=== PATIENT | male | born 1970 | race Caucasian/White ===

== ENCOUNTER 2019-04-18 14:12 | Inpatient (IN) | payer OTHER ==
[~2019-04-18] VITALS: Ht 185.4 cm; Wt 101.6 kg
--- NOTE | ~2019-04-18 | EMS ---
[place] [address] EMS Patient Care Report Name: DYLAN ORTIZ Room #: PRE M.R.#: [id number] Admission: Attend Phys: Discharge: Date of : 72 Report #: [id number] THIS REPORT FOR: //name// Report Transmitted: 04/18/2019 14:00 EMS Care Summary [place], [place]/[facility] Incident [id number] @ 04/18/2019 13:24 Incident Location [address] [place] [address] Patient DYLAN ORTIZ Male, 48 Years 1970 Patient Address [address] [place] [address] Patient History None Reported, Patient Allergies No known allergies, Patient Medications None Reported, Chief Complaint Edema Disposition Transported No Lights/[place] Dispatch Reason Sick Person Transported To [facility] Narrative Dispatched for a sick. Unable to gain access initially, P36 was required to force entry. Upon arrival found pt sitting at the top of the stairs. PT stated that he had been having some issues with swelling in his legs and abdomen for the past 2 months with no relief. 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 PT denied any allergies or medications. Pt stated he was also having some weakness in his legs and feeling tired most of the time that he was unable to get around for more than a few minutes at a time before he needed to take a break. Pt vitals assessed. PT found to have some hypertension as well. Pt was moved to the stretcher. 4 lead and 12 lead performed. While en route to hospital, pt and vitals reassessed. Pt remained unchanged throughout transport. Upon arrival at hospital, pt taken into ER. PT care report given to RN. PT care transferred to RN. Initial Vitals @13:52P: 183,CO: 2,SpO2: 96, @13:56P: 110,CO: 1,SpO2: 77, @13:57P: 114,SpO2: 98,MN Suspected: false @13:51P: 115,R: 18,BP: 194/147,Pain: 0/10,GCS: 15,Glucose: 68,CO: 0,SpO2: 97,Revised Trauma: 12, @13:57P: 110,R: 16,BP: 196/141,Pain: 0/10,GCS: 15,SpO2: 98,Revised Trauma: 12, Assessments @13:50MENTAL:Person Oriented,Event Oriented,Place Oriented,Time Oriented,SKIN:HEENT:Head/Face: No Abnormalities,Neck/Airway: No Abnormalities,LUNG SOUNDS:Left Upper: Distension,Left Lower: Distension,Right Lower: Distension,Right Upper: Distension,ABDOMEN:Left Upper: Distension,Left Lower: Distension,Right Lower: Distension,Right Upper: Distension,PELVIS//GI:No Abnormalities,EXTREMITIES:Right Arm: Edema,Left Leg: Edema,Left Arm: Edema,Right Leg: Edema,Capillary Refill: Right Upper: < 2 Sec,PULSE:Radial: 2+ Normal,NEURO:No Abnormalities,@14:15MENTAL:Person Oriented,Time Oriented,Event Oriented,Place Oriented,SKIN:HEENT:Head/Face: No Abnormalities,Neck/Airway: No Abnormalities,LUNG SOUNDS:Left Upper: Distension,Right Upper: Distension,Right Lower: Distension,Left Lower: Distension,ABDOMEN:Left Upper: Distension,Right Upper: Distension,Right Lower: Distension,Left Lower: Distension,PELVIS//GI:No Abnormalities,EXTREMITIES:Left Leg: Edema,Capillary Refill: Right Upper: < 2 Sec,Right Arm: Edema,Left Arm: Edema,Right Leg: Edema,PULSE:Radial: 2+ Normal,NEURO:No Abnormalities, Impression Generalized edema Procedures @13:5712-Lead ECG@13:50ALS AssessmentResponse: UnchangedSucceeded Timeline 13:23,Call Received 13:23,Dispatch Notified 13:24,Dispatched 13:26,En Route [address] [address] EMS Patient Care Report Name: DYLAN ORTIZ Room #: PRE ER M.R.#: [id number] Admission: Attend Phys: Discharge: Date of : 72 Report #: [id number] 13:34,On Scene 13:50,At Patient 13:50,ALS Assessment,Response: UnchangedSucceeded, 13:51,BP: 194/147 M,PULSE: 115,RR: 18 R,SPO2: 97 Ox,ETCO2: ,B,PAIN: 0,GCS: 15, 13:52,BP: / M,PULSE: 183,RR: R,SPO2: 96 Ox,ETCO2: ,BG: ,PAIN: ,GCS: , 13:56,Depart Scene 13:56,BP: / M,PULSE: 110,RR: R,SPO2: 77 Ox,ETCO2: ,BG: ,PAIN: ,GCS: , 13:57,BP: 196/141 M,PULSE: 110,RR: 16 R,SPO2: 98 Ox,ETCO2: ,BG: ,PAIN: 0,GCS: 15, 13:57,12-Lead ECG, 13:57,BP: / M,PULSE: 114,RR: R,SPO2: 98 Ox,ETCO2: ,BG: ,PAIN: ,GCS: , 14:15,At Destination 14:25,Call Closed Disclaimer v1.1 Copyright 2019 [employer] This EMS Care Summary contains data elements from the applicable legal record (which may be displayed differently). It is designed to provide pertinent information for the following purposes: continuity of care, clinical quality, and state data reporting. The complete legal record is available to ED staff and administrators of the receiving hospital in [employer]'s Patient Tracker. All data is provided "as is."
--- NOTE | 2019-04-18 14:30 | NUR ---
RADIOLOGY HERE TO TAKE EXAM
[2019-04-18 14:40] LABS: ABSOLUTE NEUTROPHILS 11.2 thou/uL (1.4-8.2); BASOPHILS 0.6 % (0.0-2.0); EOSINOPHILS 0.2 % (0.0-3.0); HEMATOCRIT 44.4 % (42.0-52.0); HEMOGLOBIN 14.4 gm/dL (14.0-18.0); LYMPHOCYTES 8.5 % (24.0-44.0); MCH 23.7 pg (26.0-34.0); MCHC 32.4 g/dL (28.0-37.0); MCV 73.1 fL (80.0-100.0); MONOCYTES 8.4 % (1.0-8.0); POLYS 82.3 % (36.0-66.0); RBC 6.07 mil/uL (4.50-6.00); RDW 22.9 % (10.5-14.5); WBC 13.7 thou/uL (4.0-11.0)
[2019-04-18 14:53] LABS: CALCIUM 9.6 mg/dL (8.5-10.1); CREATININE 2.2 mg/dL (0.7-1.3); POTASSIUM 3.7 mmol/L (3.5-5.1)
[2019-04-18 14:56] LABS: APTT 26.9 Seconds (24.5-32.8); D-DIMER 3.84 ug/mLFEU (0.19-0.50); INR 1.3; PROTIME 13.3 Seconds (9.3-11.4)
[2019-04-18 15:05] LABS: ALBUMIN 2.9 g/dL (3.4-5.0); TOTAL BILIRUBIN 5.6 mg/dL (<0.1-1.0); TROPONIN-I 0.21 ng/mL (<0.06)
[2019-04-18 15:13] LABS: ANISOCYTOSIS 2+; MICROCYTES 1+; PLATELET COUNT 150 thou/uL (150-400); PLATELET ESTIMATE NORMAL
[2019-04-18 15:17] LABS: MAGNESIUM 1.8 mg/dL (1.8-2.4)
[2019-04-18 17:55] LABS: FOLIC ACID 4.4 ng/mL (8.6-58.9)
[2019-04-18 18:05] LABS: URINE BILIRUBIN NEGATIVE (Negative); URINE BLOOD TRACE (Negative); URINE CLARITY CLEAR; URINE COLOR YELLOW; URINE GLUCOSE-RANDOM* NEGATIVE (Negative); URINE KETONES NEGATIVE (Negative); URINE LEUKOCYTES-REFLEX NEGATIVE (Negative); URINE NITRITE-REFLEX NEGATIVE (Negative); URINE PROTEIN (DIPSTICK) NEGATIVE (Negative); URINE UROBILINOGEN 0.2 E.U./dl (0.2-1.0)
[2019-04-18 18:13] LABS: AMP/METHAMP Negative (Negative); BARBITURATES Negative (Negative); BENZODIAZEPINES Negative (Negative); COCAINE Negative (Negative); METHADONE Negative (Negative); OPIATES Negative (Negative); PCP Negative (Negative)
[2019-04-18 20:38] VITALS: BP 181/128
--- NOTE | 2019-04-19 | NUR ---
PT ADMITTED FROM ED WITH ONSET HEART FAILURE,CKD.PT ARRIVED VIA CART ACCOMPANIED BT ED STAFF.PT A/OX4 VSS,HYPERTENSIVE UPON ARRIVAL.DENIES CHEST PAIN.ORIENTED TO RM AND UNIT ACTIVITIES.PT ASSESSMENT COMPLETED DOCUMENTED.ON MONITOR SINUS TACHY.PITTING EDEMA NOTED TO ALL EXTREMITIES,ABDOMEN AND SCTROTUM.SOME WEEPING NOTED TO LEFT LES.PULSES PRESENT,SENSATION INTACT.PT STATED HE HAS NOT BEEN ABLE TO DO MUCH ACTIVITIES AT HOME D/T BEING SHORT OF BREATH AND FATIQUE AND IT HAS BEEN GOING ON FOR SOME MONTHS.HE DOES NOT TAKE ANY MEDICATIONS AT HOME.DENIES PAIN.CONSULTED CARDIOLOGY AND NEPHROLOGY.WILL CALL GI CONSULT THIS AM D/T ASCITIS AND ELEVATED LFTS.POC IS TO CONTINUES TO MONITOR AND DIURESE.US OF ABD THIS AM.WILL CONT TO MONITOR PER POC.
[2019-04-19 00:12] VITALS: BP 160/111
[2019-04-19 05:10] LABS: GLYCOHEMOGLOBIN (HGB A1C) 5.8 % (4.8-5.6)
[2019-04-19 05:19] VITALS: BP 166/123
[2019-04-19 05:58] LABS: HEMATOCRIT 40.6 % (42.0-52.0); HEMOGLOBIN 13.1 gm/dL (14.0-18.0); MCH 23.8 pg (26.0-34.0); MCHC 32.4 g/dL (28.0-37.0); MCV 73.5 fL (80.0-100.0); PLATELET COUNT 130 thou/uL (150-400); RBC 5.52 mil/uL (4.50-6.00); RDW 23.4 % (10.5-14.5); WBC 10.1 thou/uL (4.0-11.0)
[2019-04-19 06:03] LABS: % SATURATION 8 % (20-39); IRON 16 ug/dL (65-175); TIBC 206 ug/dL (250-450)
[2019-04-19 06:07] LABS: ANION GAP 14 mmol/L (7-16); BUN 37 mg/dL (7-18); CALCIUM 9.1 mg/dL (8.5-10.1); CHLORIDE 101 mmol/L (98-107); CHOLESTEROL 117 mg/dL (<200); CO2 24 mmol/L (21-32); GLUCOSE 87 mg/dL (74-106); HDL CHOLESTEROL 13 mg/dL (>40); LDL CHOLESTEROL 87 mg/dL (<100); MAGNESIUM 1.7 mg/dL (1.8-2.4); POTASSIUM 3.1 mmol/L (3.5-5.1); SODIUM 139 mmol/L (136-145); TRIGLYCERIDE 88 mg/dL (<150); TROPONIN-I 0.06 ng/mL (<0.06); VLDL 18 mg/dL (<40)
[2019-04-19 06:08] LABS: SERUM ASSESSMENT Slight Lipemia
[2019-04-19 07:13] VITALS: BP 160/110
[2019-04-19 08:56] LABS: ABSOLUTE NEUTROPHILS 8.8 thou/uL (1.4-8.2); PLATELET ESTIMATE NORMAL
[2019-04-19 08:57] LABS: ANISOCYTOSIS 2+; MICROCYTES 2+
[2019-04-19 09:42] LABS: CLARITY CLOUDY; COLOR YELLOW; SOURCE ABDOMINAL; TOTAL VOLUME 60 mL
[2019-04-19 10:00] LABS: BF NUCLEATED CELLS 392; BF RBC 1319
[2019-04-19 10:47] LABS: BF NEUTROPHILS 45
[2019-04-19 10:48] LABS: BF MACROPHAGE 26
[2019-04-19 11:32] LABS: SOURCE ABDOMINAL
[2019-04-19 12:50] LABS: PROT/CREAT RATIO 0.8; URINE CREATININE-RANDOM* 23.4 mg/dL; URINE PROTEIN-RANDOM* 19.3 mg/dL (<11.9)
--- NOTE | 2019-04-19 12:52 | 2DMMODE ---
[facility] [address] [place] [address] 2 D/M-MODE ECHOCARDIOGRAM Name: DYLAN ORTIZ Room #: 210-P ADM IN M.R.#: [id number] Admission: 04/18/19 Attend Phys: Costa Tang MD Discharge: Date of : 72 Date of Service: 04/19/19 1252 Report #: [id number] THIS REPORT FOR: //name// APPROVED REPORT Study performed: 04/19/2019 11:17:57 EXAM: Comprehensive 2D, Doppler, and color-flow Echocardiogram Patient Location: Bedside Room #: 210 Status: routine BSA: 2.36 HR: 110 bpm BP: 160/110 mmHg Rhythm: Tachycardia Other Information Study Quality: Adequate Technically limited study due to inability to position patient. Indications elevated BNP, SOA/weakness, LE edema 2D Dimensions RVDd: 41.70 mm IVSd: 14.17 (7-11mm) LVOT Diam: 25.01 (18-24mm) LVDd: 50.19 mm PWd: 14.91 (7-11mm) Ascending Ao: 34.53 (22-36mm) LVDs: 44.09 (25-40mm) Aortic Root: 31.50 mm IVC: 19.00 mm Volumes Left Atrial Volume (Systole) Single Plane 4CH: 46.56 mL Single Plane 2CH: 73.56 mL LA ESV Index: 27.00 mL/m2 Aortic Valve AoV Peak Ken.: 1.09 m/s AO Peak Gr.: 4.79 mmHg LVOT Max P.02 mmHg LVOT Max V: 0.71 m/s HUNG Vmax: 3.19 cm2 Mitral Valve MV Decel. Time: 197.45 ms [facility] [address] [place] [address] 2 D/M-MODE ECHOCARDIOGRAM Name: DYLAN ORTIZ Room #: 210-[facility] IN .R.#: [id number] Admission: 04/18/19 Attend Phys: Costa Tang MD Discharge: Date of : 72 Date of Service: 04/19/19 1252 Report #: [id number] MV E Max Ken.: 0.85 m/s IVRT: 117.65 ms Pulmonary Valve PV Peak Ken.: 0.66 m/s PV Peak Gr.: 1.79 mmHg Tricuspid Valve TR Peak Ken.: 3.00 m/s RAP Estimate: 10.00 mmHg TR Peak Gr.: 36.05 mmHg PA Pressure: 46.00 mmHg Left Ventricle The left ventricle is normal size. Mild to moderate concentric left ventricular hypertrophy. Left ventricular ejection fraction is severely decreased. Left ventricular thrombus is present in apex. LVEF is 25-30%. This study is not technically sufficient to allow evaluation of the LV diastolic function. Right Ventricle Right ventricle is mildly dilated. Atria The left atrium size is normal. Right atrium is moderately dilated. Aortic Valve The aortic valve is normal in structure. No aortic regurgitation is present. There is no aortic valvular stenosis. Mitral Valve The mitral valve is normal in structure. Trace to mild mitral regurgitation. No evidence of mitral valve stenosis. Tricuspid Valve The tricuspid valve is normal in structure. Trace tricuspid regurgitation. PAP is estimated at 46 mmHg. Pulmonic Valve The pulmonary valve is normal in structure. There is no pulmonic valvular regurgitation. Great Vessels The aortic root is normal in size. IVC is normal in size and collapses <50% with inspiration. Pericardium [facility] [address] [place] [address] 2 D/M-MODE ECHOCARDIOGRAM Name: DYLAN ORTIZ Room #: 210-P ADM IN .R.#: [id number] Admission: 04/18/19 Attend Phys: Costa Tang MD Discharge: Date of : 72 Date of Service: 04/19/19 1252 Report #: [id number] Trace pericardial effusion. Moderate pleural effusion. <Conclusion> The left ventricle is normal size. Mild to moderate concentric left ventricular hypertrophy. Left ventricular ejection fraction is severely decreased. Left ventricular thrombus is present in apex. Right ventricle is mildly dilated. Right atrium is moderately dilated. The aortic valve is normal in structure. Trace to mild mitral regurgitation. Trace tricuspid regurgitation. PAP is estimated at 46 mmHg. Moderate pleural effusion. <ELECTRONICALLY SIGNED> By: Alex Raymond MD 04/19/19 1252 1252 1252 Alex Raymond MD /INF
[2019-04-19 13:57] LABS: INR 1.3; PROTIME 13.9 Seconds (9.3-11.4)
[2019-04-19 15:55] VITALS: BP 150/111
--- NOTE | 2019-04-19 17:45 | NUR ---
ASSUMED CARE OF PT AT SHIFT CHANGE. ASSESSMENTS CHARTED. MEDS GIVEN PER OCT. PT ALERT AND ORIENTED. VSS- BP ELEVATED, PROVIDERS AWARE. PT HAD PARACENTESIS THIS SHIFT WITH 5L REMOVED, DRESSING LEAKING THIS AM, DRESSING REMOVED, PRESSURE DRESSING REAPPLIED. ECHO THIS SHIFT- SEE RESULTS. HEPARIN GTT STARTED PER PHYS ORDERS. HEP DRIP CONTINUES. O2 SATS WNL ON ROOM AIR. DENIES NEEDS AT THIS TIME. WILL CONT TO MONITOR AND FOLLOW POC.
--- NOTE | 2019-04-19 17:59 | NUR ---
Chart reveiwed and case discussed with the care team. Pt noted to be pt pay. [employer] referral initiated for both SS disablity info and medicaid application. Pt with advanced liver disease. He lives with family and is unemployed. He has not seen a doctor for many years. Workup in progress with multiple specialist consults. Will f/u with the pt to assess for dc planning needs. PT/OT evals requested. Pt will likely need saftey net referral and med assistance.
[2019-04-19 18:06] LABS: ALPHA FETOPROTEIN-TUMOR* 2.4 ng/mL (0.0-8.3)
--- NOTE | 2019-04-19 18:56 | HC ---
[facility] [place] [address] CONSULTATION Name: DYLAN ORTIZ Room #: 210-P ADM IN M.R.#: [id number] Admission: 04/18/19 Attend Phys: Costa Tang MD Discharge: Date of : 72 Report #: [id number] THIS REPORT FOR: //name// CC: Costa Tang [facility] physician/PCP DATE OF SERVICE: 04/19/2019 CONSULTING PHYSICIAN: Dr. Tang. REASON FOR CONSULTATION: Hypothyroidism. HISTORY OF PRESENT ILLNESS: This is a 48-year-old male patient whose medical background is rather unremarkable, who presented to us with complaints of progressive weakness, tiredness, fatigue, shortness of breath and leg edema over the past few weeks that have gotten intensely worse over the past 2 days. On arrival, the patient was found to have multiple medical concerns including renal insufficiency, congestive heart failure, hypertensive urgency as well as elevated D-dimer. In the context of his initial evaluation, the patient was also found to have a slightly elevated TSH. On further questioning, the patient indicated that he does not have any knowledge of prior personal or family history of thyroid disease. He has not appreciated neck fullness, neck pain, difficulty swallowing or breathing or voice changes. REVIEW OF SYSTEMS: CONSTITUTIONAL: Fatigue, tiredness, but no fever or chills. PULMONARY: Shortness of breath, cough, but no hemoptysis. HEENT: Negative for congestion, earache, ear discharge. CARDIAC: Shortness of breath, dyspnea on exertion, edema, ascites. GI: Abdominal distention. No nausea, vomiting, or change in bowel movement frequency. NEUROLOGY: Lightheadedness, but no loss of consciousness, no seizure activity. SKIN: No rash or itching, ulceration. PSYCHIATRIC: No delusion, hallucination. ENDOCRINE: No polydipsia or polyuria. Otherwise his review of systems was noncontributory other than what is mentioned in HPI. PAST MEDICAL HISTORY: Unremarkable. ACTIVE MEDICATIONS: None. ALLERGIES: No known drug allergies. [facility] [address] [place] [address] CONSULTATION Name: DYLAN ORTIZ Room #: 210-[facility] IN M.R.#: [id number] Admission: 04/18/19 Attend Phys: Costa Tang MD Discharge: Date of : 72 Report #: [id number] FAMILY HISTORY: Noncontributory. SOCIAL HISTORY: The patient denies use of tobacco, alcohol or illicit drugs. He is single, lives alone and is currently unemployed. PHYSICAL EXAMINATION: GENERAL: Pleasant male patient who is not in apparent pain or distress. VITAL SIGNS: Blood pressure is 188/132 mmHg, heart rate is 101 beats per minute, respirations 20 per minute, temperature 36.3 degrees Celsius. HEENT: Anicteric sclerae. Intact extraocular motions. No carotid bruits or JVD. NECK: Supple, without JVD, carotid bruits or lymphadenopathy. I do not appreciate thyromegaly. CHEST: Noted for moderate breath sounds, bibasilar crackles, scattered rales, but no wheezes. HEART: Regular rate and rhythm without murmurs or gallops. ABDOMEN: Distended, but soft, nontender, no guarding. Active bowel sounds. EXTREMITIES: Lower extremity exam, ankle edema is noted bilaterally +1, palpable pedal pulses. NEUROLOGIC: Awake, alert and oriented to time, place and person. The remainder of examination is nonfocal. PSYCHIATRIC: He has normal mood and affect, interactive, appropriate, pleasant. SKIN: No rash, ulceration, or other abnormalities. LABORATORY DATA: Sodium 139, potassium 3.1, chloride 101, CO2 of 24, anion gap of 14, BUN 37, creatinine 2.0, glucose 87, AST 27, total bilirubin 5.6, calcium 9.1, magnesium 1.7, alkaline phosphatase 155, ALT 18, total protein 7.0, albumin 2.9, GFR 36. Ammonia less than 10. Total CPK 82, troponin 0.06. Total cholesterol 117, triglycerides 88, HDL 13, LDL 87. Hemoglobin 13.1, hematocrit 40.6, white blood count 10.1. TSH is 8.70. Ferritin 379, folate 4.4, hemoglobin A1c 5.8%. ASSESSMENT AND PLAN: Hypothyroidism. The patient certainly has an abnormal TSH that falls within the area of subclinical hypothyroidism. He is asymptomatic for this issue, which further supports the notion of subclinical hypothyroidism. The patient was counseled about this finding and about its implications. I will move to further work this up with a free T4 level, thyroid peroxidase antibodies and neck ultrasound to determine whether active thyroid hormone replacement therapy is needed or not. Glucose intolerance/prediabetes. The patient's hemoglobin A1c is consistent with early prediabetes. This could be falsely lowered by progressive issues of renal insufficiency. That said, I will order for blood glucose monitoring at least twice a day to further evaluate his glycemic standing. [facility] [address] [facility] [address] CONSULTATION Name: DYLAN ORTIZ Room #: 210-P ADM IN M.R.#: [id number] Admission: 04/18/19 Attend Phys: Costa Tang MD Discharge: Date of : 72 Report #: [id number] I certainly appreciate this consultation by Dr. Tang. <ELECTRONICALLY SIGNED> By: Prema Gonzalez MD 04/19/19 1856 1159 1420 Prema Gonzalez MD /nt
[2019-04-19 20:02] VITALS: BP 180/129
[2019-04-20 00:10] VITALS: BP 144/102
[2019-04-20 00:54] LABS: CALCIUM 8.3 mg/dL (8.5-10.1); CREATININE 1.9 mg/dL (0.7-1.3)
[2019-04-20 01:02] LABS: POTASSIUM 2.9 mmol/L (3.5-5.1)
[2019-04-20 03:04] VITALS: BP 143/91
--- NOTE | 2019-04-20 03:23 | NUR ---
ASSESSMENT DOCUMENTED.PT BEEN RESTING IN NO ACUTE DISTRESS.A/OX4.VSS.CONT ON HEPARIN DRIP,APTT THERAPEUTIC.REPLACING MAGNESIUM AND POTASSIUM.DIURESING WELL WITH LASIX.ELEVATED EXTREMITIES.SINUS RHYTHM ON MONITOR.POC IS TO CONT WITH CURRENT TX.
[2019-04-20 08:00] VITALS: BP 130/90
[2019-04-20 09:44] LABS: DIRECT BILIRUBIN 3.2 mg/dL (<0.1-0.3); TOTAL BILIRUBIN 4.3 mg/dL (<0.1-1.0); TOTAL PROTEIN 5.1 g/dL (6.4-8.2)
[2019-04-20 12:11] LABS: BODY FLUID ALBUMIN 1.6 g/dL (()); BODY FLUID AMYLASE 8 U/L (())
[2019-04-20 12:14] VITALS: BP 143/91
[2019-04-20 13:12] LABS: HAV IgM AB (ANTI-HAV IgM) Negative (Negative); HEPATITIS B SURFACE AG Negative (Negative); HEPATITIS C VIRUS AB 0.1 (0.0-0.9)
[2019-04-20 13:12] LABS: CERULOPLASMIN 35.4 mg/dL (16.0-31.0)
--- NOTE | 2019-04-20 13:42 | NUR ---
Supportive and informational visit provided at bedside. Correction to previous note: Pt lives alone in his own home with 2 steps in. He can avoid the 13 steps to his lower level. He was driving and indep prior to the past month or so. He has been out of work for sometime and has been living off a severence package and his [place] [facility] funds. He has depleted those. His next of kin relative is his father Kayden in [place]. He also has been dealing with some health issues. The pt has not seen a doctor for 20 years and was not aware of the severity of his illness. He reports he already started his [place] online. SS disability application encouraged as well based on his clinical information. He will discuss with the attending and is aware that [employer] can assist with followup. AD/DPOA document provided. Pt will ask for notary if he wishes to complete. He will call and update his father on his medical situation as he would likely be his decision maker. Support provided d/t new dx and severity of illness. Pt is overwhelmed. He has limited support and most of his friends travel with work and are not available. 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 Pt given [employer] packet, [facility]/goodrx cards, [employer] and [employer] info. Pt encouraged to call [facility] to setup a new pt appt for pcp f/u at co. CM to help voucher a months worth of meds at co. Pt reports that he and his father have talked about living together so they can help he each other out. Therapy is working with the pt. He does not have any dme and has no hh or snf history. Will f/u early next week to reassess for dc needs. [employer] liason has visited with the pt as well.
--- NOTE | 2019-04-20 13:47 | EKG ---
[place] [address] [facility] [place] [address] ELECTROCARDIOGRAM REPORT Name: DYLAN ORTIZ Room #: 210-P ADM IN M.R.#: [id number] Admission: 04/18/19 Attend Phys: Costa Tang MD Discharge: Date of : 72 Report #: [id number] THIS REPORT FOR: //name// [facility] ED Test Date: 2019-04-18 Test Time: 14:21:22 Pat Name: DYLAN ORTIZ Department: Room: 210 Gender: M Public Affairs Manager: JORDON : 1970 Requested By: Randy Angel Order Number: [id number] MD: Oliver Sanders Measurements Intervals [place] Rate: 115 P: 57 [place]: 109 QRS: 11 QRSD: 93 T: QT: 351 QTc: 486 Interpretive Statements Sinus tachycardia Low voltage, extremity leads Poor R wave progression Nonspecific ST and T wave abnormality Borderline prolonged QT interval Baseline wander in lead(s) V3,V5 No previous ECG available for comparison Electronically Signed On 04-20-2019 13:47:25 CDT by Oliver Sanders [email or web address] <ELECTRONICALLY SIGNED> By: Oliver Sanders MD, [facility] 04/20/19 1343 1421 1421 Oliver Sanders MD, [facility] /EPI
[2019-04-20 16:00] VITALS: BP 129/86
--- NOTE | 2019-04-20 18:24 | NUR ---
ASSUME CARE OF PT AT SHIFT CHANGE. ASSESSMENTS AT CHARTED. MEDS GIVEN PER OCT. VSS. A&O. PT HAS REMAINED IN BED ALL DAY, REFUSED PT. USES URINAL. CONTINUED ON HEPARIN DRIP. APTT DRAW WAS 43.7 SO BOLUSED 3171U AND INCREASED TO 2.1 AT 1245. WILL CONTINUE TO MONITOR AND FOLLOW POC.
--- NOTE | 2019-04-20 19:36 | NUR ---
REVIEWED ASSESSMENTS AND DOCUMENTATION DOCUMENTED BY ORIENTEE NURSE [facility] ASSESSMENTS AND CHARTING.
[2019-04-20 20:45] VITALS: BP 105/68
--- NOTE | 2019-04-21 04:07 | NUR ---
ASSUMED CARE FROM DAY SHIFT PT RESTING IN BED HAVE NO CONCERNS IV HEPARIN GTT INFUSING WELL ADN APTT BEING MONITOR PER PROTOCOL, DISCUSS PLAN OF CARE AND AGREEABLE RESTING WELL THROUGHOUT HOURLY ROUNDS WILL CONTINUE WITH CURRENT PLAN OF CARE AND WILL REPORT CHANGES OT ABNORMAL FINDINGS.
[2019-04-21 04:54] VITALS: BP 106/73
[2019-04-21 05:24] LABS: CALCIUM 7.9 mg/dL (8.5-10.1); MAGNESIUM 1.2 mg/dL (1.8-2.4); PHOSPHORUS 3.4 mg/dL (2.5-4.9)
[2019-04-21 05:29] LABS: POTASSIUM 2.6 mmol/L (3.5-5.1)
[2019-04-21 08:36] VITALS: BP 117/84
[2019-04-21 11:30] LABS: CALCIUM 7.5 mg/dL (8.5-10.1); CREATININE 1.9 mg/dL (0.7-1.3); MAGNESIUM 1.4 mg/dL (1.8-2.4)
[2019-04-21 11:32] LABS: POTASSIUM 2.8 mmol/L (3.5-5.1)
[2019-04-21 11:51] VITALS: BP 91/64
[2019-04-21 16:30] VITALS: BP 104/71
--- NOTE | 2019-04-21 18:40 | NUR ---
PATIENT CARE ASSUMED, ASSESSMENT CHARTED, VSS, NO COMPLAINTS OF PAIN, HEPARIN DRIP INFUSING. WILL CONTINUE TO FOLLOW POC.
[2019-04-21 19:34] VITALS: BP 94/69
[2019-04-21 20:02] VITALS: BP 107/75
--- NOTE | 2019-04-22 03:32 | NUR ---
RECEIVED PT'S CARE AT 1910; PT. ON BED; AOX4; DURING ASSESSMENT NO C/O PAIN; HS MEDICATION GIVEN; HEPARIN GTT UNITS MANTAINED; POTASSIUM RE-ASSESSED; 3.1; REPLACE PER PROTOCOL; C/O NOT ABLE TO RE-POSITION ON BED DUE TO PILLOWS; DRAW SHEAT AND PAD REPLACED; REFUSED REPOSITION THROUGH THE NIGHT; EDUCATED ABOUT THE IMPORTANCE OF TURNING FROM SIDE TO SIDE; ST. UNDERSTANDING; AGREES TO CALL WHENEVER NEEDS REPOSITIONING; ABLE TO REST A FEW HOURS; AWAKE MOST OF THE TIME DURING ROUNDINS; ST. HAVING FEW REST; MONITORING; ASSESSMENT CHARGED; FOLLOWING POC; WILL PASS ON REPORT.
[2019-04-22 04:57] LABS: HEMATOCRIT 36.6 % (42.0-52.0); MCH 23.8 pg (26.0-34.0); MCHC 32.9 g/dL (28.0-37.0); MCV 72.3 fL (80.0-100.0); RBC 5.06 mil/uL (4.50-6.00); RDW 22.5 % (10.5-14.5); WBC 7.9 thou/uL (4.0-11.0)
[2019-04-22 05:04] LABS: CREATININE 1.9 mg/dL (0.7-1.3); MAGNESIUM 1.6 mg/dL (1.8-2.4); POTASSIUM 3.3 mmol/L (3.5-5.1)
[2019-04-22 05:27] VITALS: BP 113/82
[2019-04-22 08:11] VITALS: BP 106/77
[2019-04-22 16:23] VITALS: BP 101/74
--- NOTE | 2019-04-22 17:51 | NUR ---
PATIENT CARE ASSUMED, ASSESSMENT CHARTED, VSS, ALERT AND ORIENTED X 4, AMBULATE TO BR, STOOL SAMPLE TO LAB, NO C/O PAIN, WILL CONTINUE TO MONITOR
[2019-04-22 19:41] VITALS: BP 113/77
[2019-04-23] VITALS (7 sets, daily range): BP systolic 97–116; BP diastolic 67–83
[2019-04-23 02:49] LABS: POTASSIUM 3.4 mmol/L (3.5-5.1)
--- NOTE | 2019-04-23 03:57 | NUR ---
RECEIVED PT'S CARE AROUND 1930; PT. ON BED; AOX4; DURING ASSESSMENT NOT C/O PAIN; APTT 27.9; PER PROTOCOL IV HEPARIN BOLUS GIVEN & RATE ADJUSTED; PT. EDUCATED ABOUT IT; ABLE TO REST WITH EYES CLOSED FROM TIME TO TIME; AT 0225 APTT 198.4; APTT WITHDRAW WITH HEPARIN OFF FOR ABOUT 2 MIN; WAITING ON NEW RESULTS; PT. EDUCATED ABOUT IT; ST. UNDERSTANDING; ASSESSMENT CHARGED; FOLLOWING POC; MONITORING; WILL PASS ON REPORT.
[2019-04-23 14:35] LABS: HEMATOCRIT 38.3 % (42.0-52.0); HEMOGLOBIN 12.4 gm/dL (14.0-18.0); MCH 23.7 pg (26.0-34.0); MCHC 32.3 g/dL (28.0-37.0); MCV 73.1 fL (80.0-100.0); RBC 5.24 mil/uL (4.50-6.00); RDW 22.5 % (10.5-14.5); WBC 7.4 thou/uL (4.0-11.0)
[2019-04-23 14:46] LABS: CALCIUM 8.1 mg/dL (8.5-10.1); CREATININE 2.2 mg/dL (0.7-1.3); POTASSIUM 3.8 mmol/L (3.5-5.1)
[2019-04-23 14:49] LABS: INR 1.1; PROTIME 11.6 Seconds (9.3-11.4)
--- NOTE | 2019-04-23 18:28 | NUR ---
ASSUMED CARE OF PT AT SHIFT CHANGE. ASSESSMENTS CHARTED. MEDS GIVEN PER OCT. A&O. VSS. PT WALKED WITH PT AND SAT AT BEDSIDE FOR A SHORT TIME. NO C/O PAIN. EGD AND PARACENTESIS SCHEDULED FOR TOMORROW. NPO AFTER MIDNIGHT AND STOP HEPARIN AT 0600. EGD CONSENT SIGNED. APTT 58.2, NO CHANGE TO HEPARIN DRIP. NO C/O SOB. WILL MONITOR AND FOLLOW POC.
--- NOTE | 2019-04-23 19:35 | NUR ---
ASSESSMENTS AND DOCUMENTATION REVIEWED DOCUMENTED BY NURSE EDWAR CONLEY, AGREE WITH DOCUMENTATION.
--- NOTE | 2019-04-24 04:12 | NUR ---
ASSUMED CARE OF PATIENT AT 1900. VSS, AFEBRILE. DENIES PAIN, SOA OR N/V. NPO AFTER MIDNIGHT. NOT SLEEPING MUCH, BUT CALLS OUT APPROPRIATELY. ANTICIPATING EGD, PARACENTESIS AND STRESS TEST TODAY. WORKING TOWARDS POC GOALS.
[2019-04-24 04:50] LABS: ALBUMIN 2.1 g/dL (3.4-5.0); CREATININE 2.1 mg/dL (0.7-1.3); PHOSPHORUS 2.6 mg/dL (2.5-4.9); POTASSIUM 3.8 mmol/L (3.5-5.1)
[2019-04-24 05:03] VITALS: BP 110/75
[2019-04-24 08:34] VITALS: BP 120/86
[2019-04-24 14:58] VITALS: BP 129/91
--- NOTE | 2019-04-24 15:13 | NUR ---
ASSUMED CARE OF PT AT SHIFT CHANGE. ASSESSMENTS CHARTED. MEDS GIVEN PER OCT. PT ALERT AND ORIENTED, VSS, O2 SATS WNL ON ROOM AIR. DENIES PAIN, SOB, CP. STRESS TEST PROCEDURE THIS SHIFT, EGD AND PARACENTESIS RESCHEDULED FOR TOMORROW. HEP GTT CONTINUES, VERBAL ORDERS RECEIVED TO STOP DRIP BEFORE PROCEDURES IN AM. PT DIURESING APPROPRIATELY. DENIES CONCERNS AT THIS TIME. WILL CONTINUE TO MONITOR AND FOLLOW POC.
[2019-04-24 16:06] VITALS: BP 117/88
--- NOTE | 2019-04-24 16:34 | NUR ---
MET WITH PATIENT HE HAS NO HEALTH INSURANCE BUT [employer] WORKING WITH PATIENT ON MEDICAID APPLICATION. PATIENT PLANS DC HOME. HE REPORTS FEELING BETTER WITH AMBULATION. HE PLANS TO CONT TO DRIVE AT DC FOR GROCERIES. [employer] FOLLOWING FOR DC PLANNING.
[2019-04-24 19:07] VITALS: BP 101/67
[2019-04-25] VITALS (7 sets, daily range): BP systolic 101–132; BP diastolic 62–92
--- NOTE | 2019-04-25 03:49 | NUR ---
pt resting quietly in room, stopping heparin gtt at 0500, pt npo since mnoc for egd and paracentisis, vss, will con't to monitor per ppoc.
[2019-04-25 04:34] LABS: ALBUMIN 1.8 g/dL (3.4-5.0); CALCIUM 7.9 mg/dL (8.5-10.1); POTASSIUM 3.7 mmol/L (3.5-5.1)
[2019-04-25 04:44] LABS: HEMATOCRIT 32.9 % (42.0-52.0); HEMOGLOBIN 10.9 gm/dL (14.0-18.0); MCH 23.7 pg (26.0-34.0); MCHC 33.2 g/dL (28.0-37.0); MCV 71.5 fL (80.0-100.0); RBC 4.6 mil/uL (4.50-6.00); RDW 22.8 % (10.5-14.5); WBC 7.4 thou/uL (4.0-11.0)
[2019-04-25 11:31] LABS: CLARITY SL HAZY; COLOR YELLOW; SOURCE ABDOMINAL; TOTAL VOLUME 55 mL
[2019-04-25 11:36] LABS: BF NUCLEATED CELLS 553; BF RBC 1890
[2019-04-25 12:43] LABS: BF NEUTROPHILS 26
[2019-04-25 12:44] LABS: BF MACROPHAGE 42
--- NOTE | 2019-04-25 15:33 | HC ---
[facility] [place] [address] CONSULTATION Name: DYLAN ORTIZ Room #: 210-P ADM IN M.R.#: [id number] Admission: 04/18/19 Attend Phys: Costa Tang MD Discharge: Date of : 72 Report #: [id number] THIS REPORT FOR: //name// CC: Costa Tang [facility] physician/PCP DATE OF SERVICE: 04/19/2019 NEPHROLOGY CONSULTATION ATTENDING PHYSICIAN: Michael Buchanan MD REASON FOR CONSULTATION: Elevated creatinine and difficult hypertension. HISTORY OF PRESENT ILLNESS: This 48-year-old gentleman by his account was well until a couple of months ago when he had what seems to be an acute viral illness with fever, chills and weakness. He also had some nausea and vomiting. This resolved with to some degree, but left him exceedingly weak, and he has since that time become progressively swollen, a bit jaundiced and had increasing shortness of air. The weakness progressed and he was admitted to the hospital, found to have an elevated creatinine, difficult hypertension and massive extracellular fluid expansion. PAST MEDICAL HISTORY: Very little that we know of. No previous surgeries. No previous medications. No previous hospitalizations. REVIEW OF SYSTEMS: GENERAL: He has been feeling poorly. EYES: Vision has been okay. ENT: Hearing okay, swallows okay. ENDOCRINE: No diabetes or thyroid disease. RESPIRATORY: He has become progressively short winded. CARDIAC: No chest pain, angina or palpitations. GASTROINTESTINAL: Appetite fair to poor. No vomiting or bloody stool. GENITOURINARY: No dysuria, hematuria or renal stone disease. NEUROLOGIC: Just generalized weakness. PSYCHIATRIC: Denies depression or anxiety. SOCIAL HISTORY: Former heavy smoker and drinker, but as he states not in the last year. FAMILY HISTORY: Positive for stroke, no diabetes or renal disease. PHYSICAL EXAMINATION: GENERAL: This is a chronically ill-appearing gentleman, difficulty getting his breath with conversation. [facility] [address] [place] [address] CONSULTATION Name: DYLAN ORTIZ Room #: 210-[facility] IN ..#: [id number] Admission: 04/18/19 Attend Phys: Costa Tang MD Discharge: Date of : 72 Report #: [id number] SKIN: Otherwise, unremarkable. SKELETAL: No amputations, quite swollen. HEENT: Extraocular movements are full. His sclerae are icteric. Mucous membranes are moist. Tongue, buccal mucosa are benign. NECK: Supple, no carotid bruits or lymphadenopathy is noted. CHEST: Shows diminished breath sounds at the bases. HEART: Regular, but distant. ABDOMEN: A bit swollen, but quite soft. EXTREMITIES: Showing 3+ generalized pitting edema. LABORATORY DATA: Hemoglobin 13.1, white count 10.1, platelets 130. Drug screen was negative. INR was 1.3. Sodium was 133, potassium 3.7, chloride 98, bicarbonate 21, BUN 37, creatinine 2.2, bilirubin up to 5.6, alkaline phosphatase elevated at 155. Transaminases were okay. Albumin 2.9. ASSESSMENT AND PLAN: 1. Elevated creatinine. This could be functional. He certainly could have very low cardiac output contributing. He is rather hypertensive. It may well be longstanding untreated hypertensive with hypertensive nephrosclerosis and hypertensive heart disease. Echocardiogram will certainly be helpful. We will treat the blood pressure. 2. Anasarca, IV diuretics. 3. Ascites. He has ascites. 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 He could have primary liver disease as well. The GI service is on board. The ammonia level was not elevated though. 4. Difficult hypertension, IV Lasix. We will add some amlodipine. <ELECTRONICALLY SIGNED> By: Rg Sahu MD 04/25/19 1533 [id number] Rg Sahu MD /nt
--- NOTE | 2019-04-25 17:04 | NUR ---
ASSUMED CARE OF PT AT SHIFT CHANGE. ASSESSMENTS CHARTED. MEDS GIVEN PER OCT. VSS. A&O. NO C/O PAIN. HEPARIN DRIP CURRENTLY AT 17.32ML/HR. PARACENTESIS AND EGD PERFORMED TODAY. LEGS WRAPPED IN HEIDI BANDAGES, SKIN DRY AND INTACT. PLAN TO START WARFARIN TONIGHT. WILL CONTINUE TO MONITOR AND FOLLOW POC.
--- NOTE | 2019-04-25 19:34 | NUR ---
ASSESSMENTS AND DOCUMENTATION DOCUMENTED BY NURSE EDWAR CONLEY REVIEWED, AGREE WITH ASSESSMENTS AND DOCUMENTATION.
[2019-04-26 04:19] LABS: CALCIUM 8.1 mg/dL (8.5-10.1); PHOSPHORUS 2.7 mg/dL (2.5-4.9)
[2019-04-26 05:00] LABS: PROTIME 10.8 Seconds (9.3-11.4)
--- NOTE | 2019-04-26 05:01 | NUR ---
pt resting quietly in room thru the noc heparin gtt infusing, assessment as charted, vss, voiding per urinal, will con't to monitor per ppoc.
[2019-04-26 05:03] VITALS: BP 102/59
[2019-04-26 07:11] VITALS: BP 102/73
[2019-04-26 08:40] LABS: SOURCE ABDOMINAL
[2019-04-26 10:56] VITALS: BP 114/71
[2019-04-26 12:44] LABS: DIRECT BILIRUBIN 1.6 mg/dL (<0.1-0.3); TOTAL BILIRUBIN 2.2 mg/dL (<0.1-1.0); TOTAL PROTEIN 5.4 g/dL (6.4-8.2)
[2019-04-26 14:09] LABS: BODY FLUID ALBUMIN 1.5 g/dL (()); BODY FLUID AMYLASE 24 U/L (()); BODY FLUID GLUCOSE 93 mg/dL (()); BODY FLUID LDH 124 IU/L (()); BODY FLUID PROTEIN 2.4 g/dL (())
[2019-04-26 15:30] VITALS: BP 111/65
--- NOTE | 2019-04-26 19:06 | PATH ---
[facility] [place] [address] PATHOLOGY RPT PROCEDURE Name: SINGH ORTIZ Room #: 210-P ADM IN M.R.#: [id number] Admission: 04/18/19 Date of : 72 Discharge: Report #: [id number] Path Case #: [id number] [facility] Accession Number: [id number] . 01 Material submitted: . stomach - BX OF GASTRIC . 01 Clinical history: . Cirrhosis, gastritis, gastric erosion Rule out H. pylori, small nodules . 02 Diagnosis: Stomach, biopsy: - Mild chronic inflammation, nonspecific. - No evidence of Helicobacter pylori on immunoperoxidase stain. (HENNY:vinnie; 04/26/2019) MBR/04/26/2019 . 02 Electronically signed: . Bishop Dorman MD, Pathologist NPI- [id number] . 01 Gross description: . The specimen is received in formalin, labeled "Singh Ortiz, BX of gastric", are few irregular fragments of valentin soft tissue measuring 1.0 x 0.5 x 0.1 cm in aggregate. Entirely submitted in A1. (SWS; 04/25/2019) SHS/SHS . 02 Pathologist provided ICD-10: K29.50 . 02 CPT . 646617 Specimen Comment: A courtesy copy of this report has been sent to Specimen Comment: [phone], . Specimen Comment: Report sent to and Performed at: [address], [place], [place] [id number] MD Kirby Chaney MD Phone: [phone] Performed at: [address] [id number] MD Lisa George MD Phone: [phone]
[2019-04-26 19:30] VITALS: BP 105/60
--- NOTE | 2019-04-26 19:37 | NUR ---
ASSUMED CARE OF PATIENT AT 0700. ASSESSMENTS CHARTED. PATIENT IS A&O X 4. PATIENT RESTING COMFORTABLY IN BED. STANDING WEIGHT 197.7. PATIENT AMBULATED WITH PT AROUND UNIT. HEPARIN DRIP RUNNING IN THERAPEUTIC RANGE. IV LASIX. PATIENT TO CONTINUE WITH POC.
--- NOTE | 2019-04-27 02:54 | NUR ---
ASSESSMENT DOCUMENTED.PT BEEN RESTING IN NO ACUTE DISTRESS.A/OX4.VSS.DENIES PAIN.BLES ELEVATED D/T EDEMA.PT DENIES ANY NEEDS AT THISTIME.WILL CONT WITH POC.
[2019-04-27 04:05] VITALS: BP 117/65
[2019-04-27 05:21] LABS: ALBUMIN 1.9 g/dL (3.4-5.0); CALCIUM 8.1 mg/dL (8.5-10.1); CREATININE 1.8 mg/dL (0.7-1.3); PHOSPHORUS 3.2 mg/dL (2.5-4.9); POTASSIUM 3.8 mmol/L (3.5-5.1)
[2019-04-27 07:31] VITALS: BP 126/84
[2019-04-27 11:25] VITALS: BP 113/69
--- NOTE | 2019-04-27 11:25 | NUR ---
ASSUMED CARE AT 0700, SHIFT ASSESSMENT DONE, MEDS GIVEN, VSS. DENIES ANY PAIN, NAUSEA, VOMITING. ON HEPARIN DRIP, APTT AT 110 THIS AM, HEPARIN DRIP WAS STOPPED FOR AN HOUR ,RESTARTED AT 13 MLS/HR, SEE FLOWSHEET. REDRAW PLACED FOR 1400. WILL CONTINUE TO ASSESS AND ASSIST WITH ADLs NEEDED.
[2019-04-27] MEDS ORDERED: COUMADIN 3 MG TA3 M1 PO (11:57)
[2019-04-27] MEDS ORDERED: SPIRONOLACTONE25 M1 PO (11:58)
[2019-04-27] MEDS ORDERED: COREG6.25 MG PO (11:58)
[2019-04-27] MEDS ORDERED: LISINOPRIL2.5 MG PO (11:58)
[2019-04-27] MEDS ORDERED: K-DUR 20 MEQ T20 MEQ PO (11:59)
[2019-04-27] MEDS ORDERED: LASIX 80 MG TAB80 MG PO (12:00)
[2019-04-27] MEDS ORDERED: PANTOPRAZOLE SO40 M1 PO (12:01)
[2019-04-27] MEDS ORDERED: FOLIC ACID 1 MG1 MG PO (12:01)
[2019-04-27] MEDS ORDERED: ENOXAPARIN40 MG/0.1 SUBQ (12:09)
--- NOTE | 2019-04-27 15:07 | PATH ---
[facility] [address] [place] [address] PATHOLOGY RPT PROCEDURE Name: DYLAN ORTIZ Room #: 210-P ADM IN M.R.#: [id number] Admission: 04/18/19 Date of : 72 Discharge: Report #: [id number] Path Case #: [id number] Note [facility] Accession Number: [id number] TESTS RESULT FLAG UNITS REF RANGE LAB Clinician Provided Cytology Information No. of containers..01 Other (Miscellaneous) Source: ABD.FLUID DIAGNOSIS: ABD.FLUID INCONCLUSIVE.RARE ATYPICAL CELLS PRESENT. THIS INTERPRETATION INCLUDES EVALUATION OF A CELL BLOCK. Signed out by: 02 Bishop Dorman MD, Pathologist NPI- [id number] Performed by: Dalton Norris, [employer] ([facility]) Gross description: 01 27 ML, YELLOW, CLOUDY /LCS FLAG LEGEND: L-Low Normal,H-High Normal,LL-Alert Low,HH-Alert High <-Panic Low,>-Panic High,A-Abnormal,AA-Critical Abnormal Performed at: [address] [place] [address] Kirby Chaney MD, [address] [address] Lisa George MD, Specimen Comment: A courtesy copy of this report has been sent to Specimen Comment: [phone]. Specimen Comment: Report sent to Performed at: [address], [place], [place] [id number] MD Kirby Chaney MD Phone: [phone]
[2019-04-27 15:26] LABS: PROTIME 10.6 Seconds (9.3-11.4)
[2019-04-27 15:39] VITALS: BP 132/92
--- NOTE | 2019-04-27 16:11 | NUR ---
Pt dcing home this evening. Cab ride vouchered. Meds vouchered for a total of $229.44. Meds given to ED Mathias. Pt advised to come to the ER Tuesday for lab draw per Dr. Griffin. ER notified. Pt instructed to contact [facility] or [facility] to establish a pcp and specialist f/u. Pt to keep in touch with [employer] regarding his medicaid application and disability.
[2019-04-27 16:52] VITALS: BP 132/92
== END 2019-04-27 18:31 | disposition home or self-care (01) | DRG 280 ==
LOC: ER 14:12 → EROBS 16:31 → 2N 16:31
PROVIDERS: Emergency Medicine; Hospitalist; Internal Medicine Cardiovascular Disease; Internal Medicine Gastroenterology; Internal Medicine Nephrology; Nurse Practitioner; ADMIT Hospitalist
PROC: 0W9G3ZZ Drainage of Peritoneal Cavity, Percutaneous Approach (ICD-10-PCS; principal; 2019-04-19)
PROC: 0DB68ZX Excision of Stomach, Via Natural or Artificial Opening Endoscopic, Diagnostic (ICD-10-PCS; 2019-04-25)
PROC: 0W9G3ZZ Drainage of Peritoneal Cavity, Percutaneous Approach (ICD-10-PCS; 2019-04-25)
DX: I21.9 Acute myocardial infarction, unspecified (principal); E43 Unspecified severe protein-calorie malnutrition; K76.7 Hepatorenal syndrome; K76.6 Portal hypertension; N17.9 Acute kidney failure, unspecified; I50.20 Unspecified systolic (congestive) heart failure; I42.9 Cardiomyopathy, unspecified; I42.2 Other hypertrophic cardiomyopathy; I85.00 Esophageal varices without bleeding; J91.8 Pleural effusion in other conditions classified elsewhere; I13.0 Hypertensive heart and chronic kidney disease with heart failure and stage 1 through stage 4 chronic kidney disease, or unspecified chronic kidney disease; K70.31 Alcoholic cirrhosis of liver with ascites; N18.9 Chronic kidney disease, unspecified; E80.6 Other disorders of bilirubin metabolism; E88.09 Other disorders of plasma-protein metabolism, not elsewhere classified; E03.9 Hypothyroidism, unspecified; I16.0 Hypertensive urgency; E87.6 Hypokalemia; E55.9 Vitamin D deficiency, unspecified; R09.02 Hypoxemia; K29.70 Gastritis, unspecified, without bleeding; K25.9 Gastric ulcer, unspecified as acute or chronic, without hemorrhage or perforation; Z87.891 Personal history of nicotine dependence; Z82.3 Family history of stroke; Z79.82 Long term (current) use of aspirin; Z79.899 Other long term (current) drug therapy
CPT/HCPCS: 10081; 62110; 62900; 70005